=== PATIENT | male | born 1995 | race Caucasian/White ===

== ENCOUNTER 2016-06-25 12:00 | Emergency (ER) | payer OTHER ==
[2016-06-25 13:05] LABS: HEMOGLOBIN 16.9 gm/dl (14.0-17.5); RED BLOOD COUNT 5.42 M/UL (4.20-5.50); WHITE BLOOD COUNT 8.6 K/UL (4.5-11.0)
[2016-06-25 13:18] LABS: BUN/CREATININE RATIO 10 (0-10)
== END 2016-06-25 16:28 | disposition home or self-care (01) ==
LOC: ER1 12:00
PROVIDERS: Physician Assistant
DX: K52.9 Noninfective gastroenteritis and colitis, unspecified (principal); F17.210 Nicotine dependence, cigarettes, uncomplicated; Z90.89 Acquired absence of other organs
CPT/HCPCS: 36415; 80053; 81001; 82150; 82550; 82553; 83690; 83874; 84484; 85025; 96372; 96374; 96375; 99284; J0500; J1885; J2270; J2405